=== PATIENT | male | born 1970 | race Caucasian/White ===

== ENCOUNTER → 2020-02-20 | Outpatient (CLI) | payer OTHER, MEDICARE ==
[~2020-02-20] MED LIST: BUSPAR 10MG10 MG PO; EXCEDRIN EXTRA1 EACH PO; FLEXERIL 10 MG10 MG PO; FLONASE 0.05% N16 GM; HUMALOG 10100 UNITS/ SC; LYRICA150 MG PO; MOBIC15 MG PO; PEPCID40 MG PO; PERCOCET 5-3251 EACH PO; PHENERGAN 25 MG25 M1 PO; PREDNISONE 50 M50 MG PO; PREDNISONE20 MG PO; PROTONIX40 MG PO; VIBRAMYCIN 100100 MG PO; ZOCOR20 MG PO; ZOFRAN4 MG PO
== END ==
LOC: EMI 12:48
DX: M51.16 Intervertebral disc disorders with radiculopathy, lumbar region (principal); M47.26 Other spondylosis with radiculopathy, lumbar region; M48.061 Spinal stenosis, lumbar region without neurogenic claudication; M51.17 Intervertebral disc disorders with radiculopathy, lumbosacral region; M47.27 Other spondylosis with radiculopathy, lumbosacral region; M48.07 Spinal stenosis, lumbosacral region
CPT/HCPCS: 72148

== ENCOUNTER 2020-09-01 12:17 | Emergency (ER) | payer OTHER, MEDICARE ==
[~2020-09-01 12:17] MED LIST changes: -VIBRAMYCIN 100100 MG PO
[2020-09-01 12:43] LABS: HEMOGLOBIN 14.3 gm/dl (14.0-17.5); RED BLOOD COUNT 4.63 M/UL (4.20-5.50)
[2020-09-01 13:12] LABS: BUN/CREATININE RATIO 12 (0-10)
[2020-09-01] MEDS ORDERED: VIBRAMYCIN 100100 MG PO (18:18)
== END 2020-09-01 18:27 | disposition home or self-care (01) ==
LOC: ER1 12:17
PROVIDERS: Physician Assistant
DX: J18.9 Pneumonia, unspecified organism (principal); E78.5 Hyperlipidemia, unspecified; E11.40 Type 2 diabetes mellitus with diabetic neuropathy, unspecified; F17.200 Nicotine dependence, unspecified, uncomplicated
CPT/HCPCS: 71045; 80053; 82550; 82553; 83874; 84484; 85025; 93005; 99285

== ENCOUNTER → 2020-10-05 | Outpatient (CLI) | payer OTHER, MEDICARE ==
[~2020-10-05] MED LIST changes: +VIBRAMYCIN 100100 MG PO
== END ==
LOC: KOH-I 10-01 11:30
DX: R10.9 Unspecified abdominal pain (principal); N20.0 Calculus of kidney
CPT/HCPCS: 74176

== ENCOUNTER → 2020-11-23 | Outpatient (CLI) | payer OTHER, MEDICARE | LOC: CT 07:41 | DX: N20.0 Calculus of kidney (principal); R10.9 Unspecified abdominal pain; N48.6 Induration penis plastica; N28.1 Cyst of kidney, acquired | CPT/HCPCS: 36415; 74170; 82565; Q9967 ==

== ENCOUNTER → 2021-07-29 | Outpatient (CLI) | payer OTHER, MEDICARE | LOC: CT 13:25 | DX: N28.1 Cyst of kidney, acquired (principal); N20.0 Calculus of kidney | CPT/HCPCS: 36415; 74170; 82565; 84520; Q9967 ==